=== PATIENT | female | born 1960 | race Caucasian/White ===

== ENCOUNTER 2020-03-03 07:39 | Emergency (ER) | payer OTHER ==
--- NOTE | 2020-03-03 08:27 | RAD ---
XR Knee Lt 4 View STANDARD HISTORY: Fall, left knee pain FINDINGS: No fracture or dislocation is identified.
--- NOTE | 2020-03-03 08:29 | RAD ---
XR Shoulder Rt 3 View STANDARD HISTORY: Injury, right shoulder pain FINDINGS: No acute fracture or dislocation is identified. The suggestion of an old fracture of the right ninth rib
== END 2020-03-03 08:41 | disposition home or self-care (01) ==
LOC: NAV ERS 07:39
DX: S40.021A Contusion of right upper arm, initial encounter (principal); S80.02XA Contusion of left knee, initial encounter; K21.9 Gastro-esophageal reflux disease without esophagitis; J44.9 Chronic obstructive pulmonary disease, unspecified; I10 Essential (primary) hypertension; F17.210 Nicotine dependence, cigarettes, uncomplicated; W01.0XXA Fall on same level from slipping, tripping and stumbling without subsequent striking against object, initial encounter

== ENCOUNTER 2023-09-10 12:58 | Outpatient (CLI) | payer OTHER | END 2023-09-10 12:59 | disposition home or self-care (01) | LOC: NAV RAD 12:58 | PROVIDERS: ATTEND Family Medicine | DX: M54.50 Low back pain, unspecified (principal); M47.816 Spondylosis without myelopathy or radiculopathy, lumbar region | CPT/HCPCS: 72100 ==